=== PATIENT | male | born 1970 | race Caucasian/White ===

== ENCOUNTER 2017-02-22 11:30 | Emergency (ER) | payer OTHER ==
[2017-02-22 14:06] LABS: BASOPHILS % 0.4 % (0.0-2.0); EOSINOPHILS % 0.5 % (0.0-7.0); HEMATOCRIT 44.2 % (42.0-52.0); HEMOGLOBIN 15.5 g/dl (14.0-18.0); LYMPHOCYTES # 2.1 10^3/ul (0.8-2.9); LYMPHOCYTES % 26.7 % (15.0-51.0); MEAN CORPUSCULAR HEMOGLOBIN 30.9 pg (29.0-33.0); MEAN CORPUSCULAR HGB CONC 35.1 g/dl (32.0-37.0); MEAN PLATELET VOLUME 11.1 fl (7.4-10.4); MONOCYTE # 0.6 10^3/ul (0.3-0.9); MONOCYTES % 7.5 % (0.0-11.0); NEUTROPHILS % 64.5 % (39.0-77.0); PLATELET COUNT 188 10^3/UL (140-415); RED BLOOD COUNT 5.02 10^6/ul (4.70-6.10); RED CELL DISTRIBUTION WIDTH 12.4 % (11.5-14.5); WHITE BLOOD COUNT 7.8 10^3/ul (4.8-10.8)
--- NOTE | 2017-02-22 14:09 | RADRPT ---
PROCEDURE: Lumbar spine series CLINICAL INDICATION: Right lower extremity lung mass TECHNIQUE: 2 views of the lumbar spine are available for review COMPARISON: None available FINDINGS: The normal lumbar lordosis is preserved. Alignment is intact. No acute fracture or dislocation is s een. Vertebral body heights are well maintained. Intervertebral disk heights are well maintained. Paraspinous soft tissues are grossly unremarkable. IMPRESSION: 1. Unremarkable lumbar spine series. RPTAT: AA .Adalberto Lam MD, MD Date Time Electronically viewed and signed by .Adalberto Lam MD, on 02/22/2017 14:09 .B/
[2017-02-22 14:11] LABS: ADD UMIC NO; UR ASCORBIC ACID NEGATIVE (NEGATIVE); UR BILIRUBIN (Dip) NEGATIVE (NEGATIVE); UR BLOOD (Dip) NEGATIVE (NEGATIVE); UR CLARITY CLEAR (CLEAR); UR COLOR STRAW (YELLOW); UR GLUCOSE (Dip) NEGATIVE (NEGATIVE); UR KETONES (Dip) NEGATIVE (NEGATIVE); UR LEUKOCYTE ESTERASE (Dip) NEGATIVE Leu/ul (NEGATIVE); UR NITRITE (Dip) NEGATIVE (NEGATIVE); UR SPECIFIC GRAVITY (Dip) 1.004 (1.003-1.030); UR TOTAL PROTEIN (Dip) NEGATIVE (NEGATIVE); UR UROBILINOGEN (Dip) NEGATIVE (NEGATIVE)
[2017-02-22 14:34] LABS: ALANINE AMINOTRANSFERASE 39 IU/L (13-69); ALBUMIN 4.5 g/dl (3.3-4.9); ALBUMIN/GLOBULIN RATIO 1.18; ALKALINE PHOSPHATASE 45 IU/L (42-121); ANION GAP 20 (8-16); ASPARTATE AMINO TRANSFERASE 29 IU/L (15-46); BILIRUBIN,INDIRECT 0.4 mg/dl (0-1.1); BILIRUBIN,TOTAL 0.4 mg/dl (0.2-1.3); BLOOD UREA NITROGEN 13 mg/dl (7-20); CALCIUM 9.5 mg/dl (8.4-10.2); CARBON DIOXIDE 27 mmol/L (21-31); CHLORIDE 100 mmol/L (97-110); CREATININE 1.11 mg/dl (0.61-1.24); GLUCOSE 92 mg/dl (70-220); SODIUM 143 mmol/L (135-144); TOTAL PROTEIN 8.3 g/dl (6.1-8.1)
--- NOTE | 2017-02-22 14:52 | RADRPT ---
PROCEDURE: CT Brain without contrast. CLINICAL INDICATION: Headaches. Neurologic deficit TECHNIQUE: A CT of the brain was performed on multidetector high-resolution CT scanner utilizing a xial sections from the skull base through the vertex without contrast. One or more of the following dose reduction techniques were used: Automated exposure control, Adjustment of the mA and/or kV acc ording to patient size, and/or use of iterative reconstruction technique. DOSE: CTDI = 43 mGy and the DLP = 720 mGy-cm. COMPARISON: None available FINDINGS: No acute intracranial hemorrhage, significant mass effect or midline shift. The espinoza-white different iation is grossly preserved. The ventricles are normal in size for age. No significant opacification of the visualized paranasal sinuses or mastoids. IMPRESSION: No acute intracranial findings. RPTAT: AA .Dann Crockett MD, MD Date Time Electronically viewed and signed by .Dann Crockett MD, MD on 02/22/2017 14:52 .T/
[2017-02-22] MEDS ORDERED: IBUP-1542 PO (15:04)
--- NOTE | 2017-02-22 15:11 | ERD ---
ER Documentation Chief Complaint Date/Time DATE: 02/22/17 TIME: 15:06 Chief Complaint Dizzy ROS All systems reviewed and are negative except as per history of present illness. Medications Home Meds Active Scripts Ibuprofen* (Motrin*) 600 Mg Tab, 600 MG PO Q6, #30 TAB Prov:MADISYN BEYER MD 02/22/17 PMhx/Soc Medical and Surgical Hx: pt denies Medical Hx, pt denies Surgical Hx Hx Alcohol Use: No Hx Substance Use: No Hx Tobacco Use: No Smoking Status: Never smoker Physical Exam Physical Exam Const: []Alert, [id number] per Head: Atraumatic Eyes: Normal Conjunctiva ENT: Normal External Ears, Nose and Mouth. Neck: Full range of motion..~ No meningismus. Resp: Clear to auscultation bilaterally Cardio: Regular rate and rhythm, no murmurs Abd: Soft, non tender, non distended. Normal bowel sounds Skin: No petechiae or rashes Back: No midline or flank tenderness Ext: No cyanosis, or edema Neur: Awake and alert. No cerebellar signs. Cranial nerves II through XII grossly intact. Normal gait. DTRs 2+ and equal bilaterally Psych: Normal Mood and Affect Result Diagram: 02/22/17 1345 02/22/17 1345 Results 24 hrs Laboratory Tests Test 02/22/17 13:32 02/22/17 13:45 Urine Color STRAW Urine Clarity CLEAR Urine pH 6.0 Urine Specific [place] 1.004 Urine Ketones NEGATIVEmg/dL Urine Nitrite NEGATIVEmg/dL Urine Bilirubin NEGATIVEmg/dL Urine Urobilinogen NEGATIVEmg/dL Urine Leukocyte Esterase NEGATIVELeu/ul Urine Hemoglobin NEGATIVEmg/dL Urine Glucose NEGATIVEmg/dL Urine Total Protein NEGATIVEmg/dl White Blood Count 7.810^3/ul Red Blood Count 5.0210^6/ul Hemoglobin 15.5g/dl Hematocrit 44.2% Mean Corpuscular Volume 88.0fl Mean Corpuscular Hemoglobin 30.9pg Mean Corpuscular Hemoglobin Concent 35.1g/dl Red Cell Distribution Width 12.4% Platelet Count 42741^3/UL Mean Platelet Volume 11.1fl Neutrophils % 64.5% Lymphocytes % 26.7% Monocytes % 7.5% Eosinophils % 0.5% Basophils % 0.4% Nucleated Red Blood Cells % 0.0/100WBC Neutrophils # (Manual) 5.010^3/ul Lymphocytes # 2.110^3/ul Monocytes # 0.610^3/ul Eosinophils # 0.010^3/ul Basophils # 0.010^3/ul Nucleated Red Blood Cells # 0.010^3/ul Sodium Level 143mmol/L Potassium Level 4.0mmol/L Chloride Level 100mmol/L Carbon Dioxide Level 27mmol/L Anion Gap 20 Blood Urea Nitrogen 13mg/dl Creatinine 1.11mg/dl Glucose Level 92mg/dl Calcium Level 9.5mg/dl Total Bilirubin 0.4mg/dl Direct Bilirubin 0.00mg/dl Indirect Bilirubin 0.4mg/dl Aspartate Amino Transf (AST/SGOT) 29IU/L Alanine Aminotransferase (ALT/SGPT) 39IU/L Alkaline Phosphatase 45IU/L C-Reactive Protein Pending Total Protein 8.3g/dl Albumin 4.5g/dl Globulin 3.80g/dl Albumin/Globulin Ratio 1.18 Procedures/MDM Patient presents with dizziness and numbness and tingling of his right lower extremity for last day. CBC and CMP are normal. Urine is negative. CT brain shows no acute abnormalities. X-ray LS-Spine 3V Interpreted by me: Bones: [No fracture] Joints: [No dislocation] Foreign body: [None]. Impression have normal lumbar spine x-ray Patient's symptoms of uncertain etiology certainly other things such as MS or the differential.. He may have sciatica symptoms. Currently there is no evidence of mass-effect, neurologic deficit, meningitis, metabolic abnormalities to explain current symptoms. Patient was discharged home with primary care and possible neurology follow-up for further evaluation treatment. He should otherwise recheck for additional symptoms such as fevers, shortness breath, chest pain, new worsening symptoms or as directed. Departure Diagnosis: Primary Impression: Dizzy Additional Impressions: Numbness Distal paresthesia Patient Instructions: Dizziness, Unk Cause, Paraesthesias Referrals: DALE FULTON MD, IRA CHUGH, DEEPAK K MD Additional Instructions: Examinations normal today. Uncertain cause of symptoms. Recommend further evaluation by neurology or primary care doctor. Recheck otherwise for new or worsening symptoms. MADISYN BEYER MD Feb 22, 2017 15:11
[2017-02-22 15:18] LABS: C-REACTIVE PROTEIN < 0.5 mg/dl (0.0-0.9)
[2017-02-22 15:24] VITALS: BP 142/78; PULSE 88; RESP 16; TEMP 98.6
== END 2017-02-22 15:25 | disposition home or self-care (01) ==
LOC: E/R 11:30 → FTE 15:25
DX: R42 Dizziness and giddiness (principal); R20.0 Anesthesia of skin; R20.2 Paresthesia of skin
CPT/HCPCS: 70450; 72100; 80053; 81003; 85025; 86140